=== PATIENT | male | born 1980 | race African-American/Black ===

== ENCOUNTER 2018-07-24 19:01 | Emergency (ER) | payer OTHER ==
[~2018-07-24] VITALS: Ht 170.2 cm; Wt 81.6 kg
[2018-07-24 19:10] VITALS: BP_SYST 139
[2018-07-24] MEDS ORDERED: AMOXICILLIN 500 MG CAPSULE PO ONE (20:00)
[2018-07-24] MEDS ORDERED: IBUPROFEN 600 MG TABLET PO ONE (20:00)
[2018-07-24 20:10] VITALS: BP_SYST 139
== END 2018-07-24 20:10 | disposition home or self-care (01) ==
LOC: SED 19:01
DX: H66.92 Otitis media, unspecified, left ear (principal); R51 Headache
CPT/HCPCS: 99283

== ENCOUNTER 2018-09-24 09:38 | Emergency (ER) | payer OTHER ==
[~2018-09-24] VITALS: Ht 170.2 cm; Wt 81.6 kg
[2018-09-24 09:38] VITALS: BP_SYST 135
[2018-09-24] MEDS ORDERED: DILTIAZEM HCL 120 MG CAP.SR.24H PO ONE (10:00)
[2018-09-24] MEDS ORDERED: DILTIAZEM HCL 25 MG/5 ML VIAL IVP ONE (10:00)
[2018-09-24] MEDS ORDERED: IBUPROFEN 800 MG TABLET PO ONE (10:15)
[2018-09-24 10:25] VITALS: BP_SYST 135
== END 2018-09-24 10:25 | disposition home or self-care (01) ==
LOC: SED 09:38
DX: H72.92 Unspecified perforation of tympanic membrane, left ear (principal)
CPT/HCPCS: 99283

== ENCOUNTER 2018-11-15 16:09 | Emergency (ER) | payer OTHER ==
[~2018-11-15] VITALS: Ht 167.6 cm; Wt 81.6 kg
[2018-11-15 16:40] VITALS: BP_SYST 102
--- NOTE | 2018-11-15 16:42 | NUR ---
Jennifer GODDARD examining patient.
[2018-11-15] MEDS ORDERED: KETOROLAC TROMETHAMINE 60 MG/2 ML VIAL IM ONE (16:45)
[2018-11-15] MEDS ORDERED: DEXAMETHASONE SOD PHOSPHATE 10 MG/ML VIAL IM ONE (16:45)
--- NOTE | 2018-11-15 16:47 | NUR ---
Patient returned to waiting rm. Patient understands need for pts to be seen in order of severity.
--- NOTE | 2018-11-15 17:55 | NUR ---
[facility]. Report given to Bonny LAWS.
[2018-11-15] MEDS ORDERED: PENICILLIN G BENZATHINE 1.2 MMU/2 ML SYR IM ONE (18:00)
--- NOTE | 2018-11-15 18:00 | NUR ---
Patient presented to ER with throat pain. Patient A&Ox4, ambulatory to ER, Afebrile, pain7/10, nausea. PAtient states he has sore throat.
--- NOTE | 2018-11-15 18:01 | NUR ---
JESSICA Gautam [employer]ELTY WORKER at bedside examining patient.
[2018-11-15 18:20] VITALS: BP_SYST 102
--- NOTE | 2018-11-15 18:20 | NUR ---
Patient given written and verbal discharge instructions and verbalizes understanding. ER MD discussed with patient the results and treatment provided. Patient in stable condition. ID arm band removed. Rx of Motrin, zofran, Penicilin, prednisone given06/20 tolerable for pt[]. Opportunity for questions provided and answered. Medication side effect fact sheet provided.
== END 2018-11-15 18:20 | disposition home or self-care (01) ==
LOC: SED 16:09
DX: J02.0 Streptococcal pharyngitis (principal); Z91.030 Bee allergy status
CPT/HCPCS: 86403; 96372; 99283; J0561; J1100; J1885; 36415

== ENCOUNTER 2023-10-10 00:25 | Emergency (ER) | payer MEDICAID, OTHER ==
[~2023-10-10] VITALS: Ht 170.2 cm; Wt 104.3 kg
[2023-10-10 00:40] VITALS: BP_SYST 106; PULSE 98; RESP 18; TEMP 98.3; O2SAT 94
[2023-10-10] MEDS: ONDANSETRON 4 MG ODT TAB PO ONE (00:53)
[2023-10-10] MEDS: MAG-AL HYDROX/SIMETH 30 ML UDC PO ONE (00:54)
[2023-10-10] MEDS: FAMOTIDINE 20 MG TABLET PO ONE (00:54)
[2023-10-10] MEDS: KETOROLAC TROMETHAMINE 30 MG VIAL IM ONE (00:59)
[2023-10-10] MEDS ORDERED: ONDA-8 TL (01:37)
[2023-10-10] MEDS ORDERED: FAMO-132 PO (01:37)
[2023-10-10 01:53] VITALS: BP_SYST 106; PULSE 98; RESP 18; TEMP 98.3; O2SAT 94
== END 2023-10-10 01:52 | disposition home or self-care (01) ==
LOC: SED 00:25
DX: R10.84 Generalized abdominal pain (principal); R11.0 Nausea; Z91.030 Bee allergy status; Z79.899 Other long term (current) drug therapy; Z79.2 Long term (current) use of antibiotics
CPT/HCPCS: 99284; 96372; Q0162; J1885